=== PATIENT | female | born 1940 | race Two or more races ===

== ENCOUNTER → 2021-05-23 | Emergency (ER) | payer OTHER ==
[~2021-05-23] VITALS: Ht 152.4 cm; Wt 68.0 kg
== END | disposition home or self-care (01) ==
LOC: ER 19:13
DX: T15.12XA Foreign body in conjunctival sac, left eye, initial encounter (principal); W45.8XXA Other foreign body or object entering through skin, initial encounter; Y93.89 Activity, other specified; Y92.832 Beach as the place of occurrence of the external cause; Y99.8 Other external cause status